=== PATIENT | female | born 1945 | race Asian ===

== ENCOUNTER 2017-04-25 08:13 | Emergency (ER) | payer SELFPAY ==
[~2017-04-25] VITALS: Ht 165.1 cm; Wt 57.7 kg
[~2017-04-25 08:13] MED LIST: HCTZ 25MG25 MG PO; IBU-8800 MG PO; NO HOME MEDICATIONS; NORVASC5 MG PO; VICODIN 5/5001 UDTAB PO
[2017-04-25 09:11] LABS: BASO % 0.6 % (0.0-2.0); EOS % 0.3 % (0-4.0); GRAN # 5.2 (1.4-6.5); GRAN % 71.7 % (42.2-75.2); HEMOGLOBIN 14.6 g/dl (12.5-16.0); LYMPH # 1.5 (1.2-3.4); LYMPH % 20.5 % (20.0-51.0); MEAN CELL VOLUME 93 fl (80.0-100.0); MEAN CORPUSCULAR HEMOGLOBIN 32 pg (27.0-31.0); MEAN CORPUSCULAR HGB CONC 34 g/dl (33.0-37.0); MEAN PLATELET VOLUME 9.3 fl (7.4-10.4); MONO # 0.4 (0.1-0.6); MONO % 5.5 % (1.7-9.3); PLATELET COUNT 224 K/mm3 (130-400); RED BLOOD COUNT 4.63 M/mm3 (4.10-5.30); REDCELL DISTRIBUTION WIDTH-CV 11.5 % (11.5-14.5); WHITE BLOOD COUNT 7.2 K/mm3 (4.8-10.8)
[2017-04-25 09:12] LABS: ADJUSTED CALCIUM 8.3 mg/dL (8.4-10.2); ALANINE AMINOTRANSFERASE 32 U/L (9-52); ALBUMIN 4.8 gm/dL (3.5-5.0); ALKALINE PHOSPHATASE 99 U/L (50-136); ANION GAP 16 mmol/L (7-16); BILIRUBIN,TOTAL 2.6 mg/dL (0.0-1.0); BLOOD UREA NITROGEN 11 mg/dL (7-17); CALCIUM 8.9 mg/dL (8.4-10.2); CARBON DIOXIDE 22 mmol/L (22-30); CHLORIDE 99 mmol/L (98-107); CREATININE, serum 0.65 mg/dL (0.52-1.25); GLUCOSE 167 mg/dL (74-106); LIPASE 65 U/L (23-300); POTASSIUM 3.7 mmol/L (3.4-5.0); SODIUM 138 mmol/L (137-145); TOTAL PROTEIN 8.8 gm/dL (6.4-8.2)
[2017-04-25 09:13] LABS: C-REACTIVE PROTEIN < 0.5 mg/dL (0.0-0.9)
[2017-04-25 09:21] LABS: TROPONIN-I < 0.012 ng/mL (0.000-0.034)
[2017-04-25 09:32] LABS: ERYTHROCYTE SEDIMENTATION RATE 6 mm/hr (0-30)
[2017-04-25 10:40] LABS: PH 8 (5-8); SQUAMOUS EPITHELIAL 0-2 /hpf; URINE APPEARANCE Clear; URINE BACTERIA None Seen /hpf; URINE BILIRUBIN Negative (NEGATIVE); URINE BLOOD Negative (NEGATIVE); URINE COLOR Straw; URINE GLUCOSE 2+ (NEGATIVE); URINE KETONE Negative (NEGATIVE); URINE RBC 0-2 /hpf; URINE UROBILINOGEN Negative (NEGATIVE); URINE WBC 0-2 /hpf
[2017-04-25 15:35] VITALS: BP 145/81; PULSE 70; TEMP 97.3
== END 2017-04-25 16:11 | disposition short-term general hospital (02) ==
LOC: COL.ER 08:13
PROVIDERS: Emergency Medicine
DX: K52.9 Noninfective gastroenteritis and colitis, unspecified (principal); R51 Headache; I10 Essential (primary) hypertension; E27.8 Other specified disorders of adrenal gland; R79.89 Other specified abnormal findings of blood chemistry
CPT/HCPCS: J0744; J1170; J1885; J2405; J2765; J7030; Q9967